=== PATIENT | male | born 2000 | race Caucasian/White ===

== ENCOUNTER 2021-05-02 20:56 | Emergency (ER) | payer OTHER ==
[2021-05-02 21:12] VITALS: TEMP 98.6
[2021-05-02] MEDS ORDERED: KETOROLAC 15 MG/ML 1 ML VIAL IM STA (21:31)
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
[2021-05-02 21:58] VITALS: BP 140/80; PULSE 60; RESP 20
== END 2021-05-02 21:55 | disposition home or self-care (01) ==
LOC: EC 20:56
DX: S39.92XA Unspecified injury of lower back, initial encounter (principal); V43.52XA Car driver injured in collision with other type car in traffic accident, initial encounter; Y92.410 Unspecified street and highway as the place of occurrence of the external cause
CPT/HCPCS: 99283; 96372; J1885

== ENCOUNTER 2021-09-02 00:30 | Emergency (ER) | payer OTHER ==
[2021-09-02 00:45] VITALS: BP 152/72; PULSE 60; RESP 18; TEMP 98.4
--- NOTE | 2021-09-02 00:51 | ED ---
Male Urogenital HPI - General Chief complaint: Urogenital Stated complaint: Groin Pain Time Seen by Provider: 09/02/21 00:46 Source: patient, RN notes reviewed, old records reviewed Mode of arrival: ambulatory Limitations: no limitations - History of Present Illness Initial comments: This is a 21-year-old male DF for evaluation. Patient was warmed pain and testicular pain. Denying any trauma to the area and no other new complaints. No travel history no sick contacts no fevers no cough or congestion. Patient has no medical history, patient takes no medications MD Complaint: testicle pain -: hour(s) Location: right testicle Radiation: none Severity: mild Severity scale (1-10): 3 Quality: sharp Consistency: constant Improves with: none Worsens with: none Reports: denies other symptoms - Related Data Previous Rx's Medication Instructions Recorded Ibuprofen [Motrin] 600 mg PO Q8HR PRN #30 tab 05/02/21 Allergies Allergy/AdvReac Type Severity Reaction Status Date / Time No Known Allergies Allergy Verified 09/02/21 00:45 Review of Systems ROS Statement: Those systems with pertinent positive or pertinent negative responses have been documented in the HPI. ROS Other: All systems not noted in ROS Statement are negative. Past Medical History Past Medical History: No Reported History History of Any Multi-Drug Resistant Organisms: None Reported Past Surgical History: No Surgical Hx Reported Past Psychological History: No Psychological Hx Reported Smoking Status: Never smoker Past Alcohol Use History: None Reported Past Drug Use History: None Reported General Exam Limitations: no limitations General appearance: alert, in no apparent distress Head exam: Present: atraumatic, normocephalic, normal inspection Eye exam: Present: normal appearance, PERRL, EOMI. Absent: scleral icterus, conjunctival injection, periorbital swelling ENT exam: Present: normal exam, mucous membranes moist Neck exam: Present: normal inspection. Absent: tenderness, meningismus, lymphadenopathy Respiratory exam: Present: normal lung sounds bilaterally. Absent: respiratory distress, wheezes, rales, rhonchi, stridor Cardiovascular Exam: Present: regular rate, normal rhythm, normal heart sounds. Absent: systolic murmur, diastolic murmur, rubs, gallop, clicks GI/Abdominal exam: Present: soft, normal bowel sounds. Absent: distended, tenderness, guarding, rebound, rigid Extremities exam: Present: normal inspection, full ROM, normal capillary refill. Absent: tenderness, pedal edema, joint swelling, calf tenderness Back exam: Present: normal inspection Neurological exam: Present: alert, oriented X3, CN II-XII intact Psychiatric exam: Present: normal affect, normal mood Skin exam: Present: warm, dry, intact, normal color. Absent: rash Course Vital Signs 09/02/21 00:43 Temperature 98.4 F Pulse Rate 60 Respiratory 18 Rate Blood Pressure 152/72 O2 Sat by Pulse 98 Oximetry - Reevaluation(s) Reevaluation #1: 09/02/21 02:12 Medical record is reviewed Reevaluation #2: 09/02/21 02:12 Patient's pain is improved Reevaluation #3: 09/02/21 02:12 Patient informed results and questions answered Medical Decision Making - Medical Decision Making 21 male to the emergency department with nonspecific testicular pain. Ultrasound and urinalysis are normal here in the ER patient can be discharged home - Lab Data Lab Results 09/02/21 Range/Units 00:50 Urine Color Light Yellow Urine Appearance Clear (Clear) Urine pH 6.5 (5.0-8.0) Ur Specific [place] 1.009 (1.001-1.035) Urine Protein Negative (Negative) Urine Glucose (UA) Negative (Negative) Urine Ketones Negative (Negative) Urine Blood Negative (Negative) Urine Nitrite Negative (Negative) Urine Bilirubin Negative (Negative) Urine Urobilinogen <2.0 (<2.0) mg/dL Ur Leukocyte Esterase Negative (Negative) - Radiology Data Radiology results: report reviewed (Ultrasound of testicles negative for acute disease), image reviewed Disposition Clinical Impression: Testicular pain, right Disposition: HOME SELF-CARE Condition: Good Instructions (If sedation given, give patient instructions): Testicle Pain (ED), Scrotal Pain (ED) Is patient prescribed a controlled substance at d/c from ED?: No Referrals: None,Stated [Primary Care Provider] - 1-2 days
[2021-09-02 01:12] LABS: Appearance,Urine Clear (Clear); Bilirubin,Urine Negative (Negative); Blood,Urine Negative (Negative); Color,Urine Light Yellow; Glucose,Urine (UA) Negative (Negative); Ketones,Urine Negative (Negative); Leukocyte Esterase,Urine Negative (Negative); Nitrite,Urine Negative (Negative); PH, Urine 6.5 (5.0-8.0); Protein,Urine Negative (Negative); Specific Gravity,Urine 1.009 (1.001-1.035); Urobilinogen,Urine <2.0 mg/dL (<2.0)
--- NOTE | 2021-09-02 01:44 | US ---
EXAMINATION TYPE: US scrotum with doppler. Grayscale and color Doppler Duplex imaging performed of tran calvo scrotum. DATE OF EXAM: 09/02/2021 COMPARISON: NONE CLINICAL HISTORY: pain. Pain within right testicle. EXAM MEASUREMENTS: TESTICLES: Right Testicle: 4.4 x 2.8 x 2.4 cm Left Testicle: 4.4 x 2.6 x 2.3 cm EPIDIDYMIS HEAD: Right Epididymis: 0.5 x 1.1 x 1.1 cm Left Epididymis: 0.7 x 1.7 x 0.9 cm Doppler performed to assess for testicular vascularity; bilateral color flow and waveforms are seen. Presence of hydroceles: None seen. Presence of varicoceles: Vessels seen lateral to left testicle, measure up to 2 mm. IMPRESSION: No testicular torsion or mass. No free fluid.
== END 2021-09-02 02:28 | disposition home or self-care (01) ==
LOC: EC 00:30
DX: N50.811 Right testicular pain (principal)
CPT/HCPCS: 76870; 81003; 93975; 99284

== ENCOUNTER 2022-05-22 16:53 | Emergency (ER) | payer OTHER ==
[2022-05-22 17:58] VITALS: BP 146/83; PULSE 68; RESP 16; TEMP 98
--- NOTE | 2022-05-22 19:42 | ED ---
Anxiety HPI - General Chief Complaint: Anxiety Stated Complaint: Anxiety Time Seen by Provider: 05/22/22 18:35 Source: patient Mode of arrival: ambulatory - History of Present Illness Initial Comments: Patient is a 21-year-old otherwise healthy male who presents to the emergency department with a chief complaint anxiety attack. Patient states he has a lot of situational factors and his life causing anxiety. Patient was at a restaurant today when he became anxious and experienced an anxiety attack. During the anxiety attack patient experienced palpitations, shortness of breath, and tingling of the fingers. The episode lasted about 15 minutes and resolved when the paramedics came. Patient states he feels well now. Denies chest pain and shortness of breath. Has history of anxiety. Denies history of cardiac disease including arrhythmia. Denies family history of arrhythmia. - Related Data Home Medications: Previous Rx's Medication Instructions Recorded Ibuprofen [Motrin] 600 mg PO Q8HR PRN #30 tab 05/02/21 Allergies/Adverse Reactions: Allergies Allergy/AdvReac Type Severity Reaction Status Date / Time No Known Allergies Allergy Verified 05/22/22 17:58 Review of Systems ROS Statement: Those systems with pertinent positive or pertinent negative responses have been documented in the HPI. ROS Other: All systems not noted in ROS Statement are negative. Past Medical History Past Medical History: No Reported History History of Any Multi-Drug Resistant Organisms: None Reported Past Surgical History: No Surgical Hx Reported Past Psychological History: No Psychological Hx Reported Smoking Status: Never smoker Past Alcohol Use History: Occasional Past Drug Use History: None Reported General Exam Limitations: no limitations General appearance: alert, in no apparent distress Head exam: Present: atraumatic, normocephalic, normal inspection Respiratory exam: Present: normal lung sounds bilaterally. Absent: respiratory distress, wheezes, rales, rhonchi, stridor Cardiovascular Exam: Present: regular rate, normal rhythm, normal heart sounds. Absent: systolic murmur, diastolic murmur, rubs, gallop, clicks GI/Abdominal exam: Present: soft, normal bowel sounds. Absent: distended, tenderness, guarding, rebound, rigid Course Vital Signs 05/22/22 17:55 Temperature 98 F Pulse Rate 68 Respiratory 16 Rate Blood Pressure 146/83 O2 Sat by Pulse 99 Oximetry Medical Decision Making - Medical Decision Making This is a 21-year-old male who presents after anxiety attack. Thorough history and examination were performed. Patient is well-appearing. He has no concerns currently. EKG shows sinus bradycardia with sinus arrhythmia. Patient and I discussed mental health resources in detail. Patient plans to establish care with a therapist. Dr. Farmer is my attending. Disposition Clinical Impression: Acute anxiety, Panic attack Disposition: HOME SELF-CARE Condition: Good Instructions (If sedation given, give patient instructions): Panic Attack (ED) Additional Instructions: Follow up with primary care provider in one to 2 days. Return to the emergency department experience new, concerning, or worsening symptoms. Is patient prescribed a controlled substance at d/c from ED?: No Referrals: Daniel Whittington MD [Primary Care Provider] - 1-2 days Time of Disposition: 19:42
== END 2022-05-22 19:59 | disposition home or self-care (01) ==
LOC: EC 16:53
DX: F41.0 Panic disorder [episodic paroxysmal anxiety] (principal); F41.9 Anxiety disorder, unspecified
CPT/HCPCS: 93005; 99284